=== PATIENT | female | born 1935 | race Caucasian/White ===

== ENCOUNTER 2018-07-19 09:48 | Observation (INO) ==
[2018-07-19] MEDS ORDERED: Isovue-370 500 ML BOTTLE IVP ONE ×2 (09:54→12:02)
[2018-07-19] MEDS ORDERED: Ibuprofen 600 MG TABLET PO ONE (09:54)
[2018-07-19] MEDS ORDERED: Azithromycin 500 MG in D5% in Water 250 ML IVPB ONE (09:55)
[2018-07-19] MEDS ORDERED: ISOVUE-370 100 ML INFUS..BTL IVP ONE (10:01)
--- NOTE | 2018-07-19 10:02 | Emergency Department Note ---
Disposition Clinical Impression: Influenza A, S/P lumbar laminectomy COPD (chronic obstructive pulmonary disease) Qualifiers: COPD type: unspecified COPD Qualified Code(s): J44.9 - Chronic obstructive pulmonary disease, unspecified Disposition: Admitted As Inpatient Condition: Fair Time of Disposition: 08:13 URI/Sore Throat HPI - General Chief Complaint: ED Upper Respiratory Infection Stated Complaint: fever, cough, confusion Time Seen by Provider: 07/19/18 09:51 Source: patient - History of Present Illness HPI Narrative: 82-year-old female who arrives slightly confused according to her she has been in rehabilitation and [facility] after having recent surgery she has been home for about a week she's having fever chills cough congestion she's had no apnea and no cyanosis symptoms just began here in the past 24 hours they've exposure to sick individuals but no known flu positive. stated that she was a little bit confused this morning and is resulted brought to the emergency room he denies of that she was complaining of a chest pain or chest pressure any vomiting or diarrhea he said that she was shaking like she was cold she's been brought in by both her and son they deny though any additional complaints with complete entire review of systems other than some back pain which she has had since her recent surgery but nothing new they do note though that her legs a little bit swollen but don't feel that they are anymore than usual all systems reviewed are otherwise negative Pt Subjective Complaint: fever, cough, flu symptoms, nasal congestion Onset (ago): hour(s) Duration: constant Improves with: nothing Worsens with: nothing If sputum, description: watery Context: sick contacts Associated symptoms: Reports: fever, chills, myalgias, nasal congestion, cough, shortness of breath, other (confusion). Denies: voice changes, diaphoresis, headache, rhinorrhea, sore throat, stiff neck, chest pain, abdominal pain, nausea, vomiting, diarrhea, dysuria, rash, ear pain Treatments prior to arrival: none - Related Data Home Medications Medication Instructions Recorded Confirmed Calcium Carbonate/Vitamin D3 1 tab PO DAILY 01/29/15 07/09/18 [Calcium 600 + D Tablet] Metoprolol [Lopressor] 25 mg PO BID 01/29/15 07/19/18 RX: Aspirin 325 mg PO QPM 01/29/15 07/19/18 RX: Lisinopril [Zestril] 20 mg PO DAILY 01/29/15 07/19/18 Simvastatin [Zocor] 20 mg PO HS 01/29/15 07/19/18 Cyanocobalamin (B-12) [Vitamin B12] 1,000 mcg IM QMONTH 01/09/17 07/09/18 Albuterol Neb [Proventil Neb] 2.5 mg IH DAILY PRN 07/22/17 07/09/18 Albuterol Sulfate [Proair 2 puff IH PRN PRN 07/22/17 07/09/18 Respiclick] Fluticasone/Salmeterol [Advair 1 tab IH BID 07/22/17 07/09/18 250-50 Diskus] Pregabalin [Lyrica] 150 mg PO 2100 04/15/18 07/19/18 RX: Letrozole [Femara] 2.5 mg PO QPM 07/09/18 07/09/18 Sennosides [Senokot] 8.6 mg PO DAILY 07/19/18 07/19/18 Previous Rx's Medication Instructions Recorded Benzonatate [Tessalon] 100 mg PO TID #15 capsule 05/21/18 Montelukast [Singulair] 10 mg PO DAILY #30 tablet 05/21/18 Nystatin [Nystatin Suspension] 15 ml PO TID #240 oral.susp 05/21/18 RX: Magic Mouthwash [Magic 10 ml PO QID #240 ml 05/21/18 Mouthwash BLM] RX: Ferrous Sulfate 325 mg PO BIDWM #60 tablet 07/17/18 Sennosides [Senokot] 8.6 mg PO BID #60 tablet 07/17/18 Allergies Allergy/AdvReac Type Severity Reaction Status Date / Time solifenacin [From Vesicare] Allergy See Verified 07/19/18 09:59 Comments Sulfa (Sulfonamide Allergy See Verified 07/19/18 09:59 Antibiotics) Comments trospium Allergy See Verified 07/19/18 09:59 Comments All systems ED: reviewed and negative except as stated. Review of Systems: As Per HPI (Information provided by the confused) Constitutional: Reports: fever, chills, weakness Eyes: Denies: eye pain, eye discharge, vision change ENT ED: Reports: congestion. Denies: ear pain, throat pain Cardiovascular: Denies: chest pain, palpitations Respiratory: Reports: cough, dyspnea, wheezes Gastrointestinal: Denies: abdominal pain, nausea Genitourinary: Denies: urgency, dysuria, frequency Musculoskeletal: Reports: back pain (Due to surgery). Denies: neck pain Integumentary: Denies: rash, abrasion Neurological: Denies: headache, weakness Psychiatric: Denies: anxiety, depression Endocrine: Denies: fatigue, heat or cold intolerance Hematological/Lymphatic: Denies: easy bleeding Allergic/Immunologic: Denies: facial swelling URI PMH - Past Medical History Medical history: Reports: COPD, hyperlipidemia, hypertension Surgical history: Reports: cataract, cholecystectomy, pacemaker/AICD Psychiatric history: Reports: no psych history TRANSONIC ENGINEER history: Reports: no TRANSONIC ENGINEER history - Social History Smoking Status: Never smoker Alcohol use: Reports: none Drug use: Reports: none Physical Exam - General Limitations: altered mental status, age General appearance: alert, in no apparent distress, anxious, other (pleasantly cnfused) - Head Head exam: atraumatic, normocephalic, normal inspection - Eye Eye exam: Present: normal appearance, PERRL, EOMI - ENT ENT exam: normal exam, normal oropharynx, mucous membranes moist, TM's normal bilaterally, normal external ear exam - Neck Neck exam: Present: normal inspection, trachea midline - Chest Chest inspection: Present: normal inspection, symmetric chest wall rise - Respiratory Respiratory exam: Present: wheezes, prolonged expiratory phase - Cardiovascular Cardiovascular exam: Present: regular rate, normal rhythm, normal heart sounds - Abdominal Exam Abdominal exam: Present: soft, Non-Tender, normal bowel sounds. Absent: mass, pulsatile mass - Extremities Exam Extremities exam: Present: normal inspection, full ROM, normal capillary refill, pedal edema (appears slightly greater on the right than the left). Absent: te nderness, joint swelling, calf tenderness - Expanded Lower Extremity Exam Neurovascular/Tendon exam: Present: normal capillary refill, normal fine/light touch Gait: observed and normal - Back Exam Back exam: Present: other (Recent back surgery brace in place) - Neurological Exam Neurological exam: Present: alert, oriented X3, CN II-XII intact, normal gait - Psychiatric Psychiatric exam: Present: normal affect, normal mood - Skin Skin exam: Present: warm, dry, intact, normal color Course Course Narrative: Patient is seen and evaluated workup for PE as well as possibility of influenza or pneumonia is being done as well as urinary tract infection - Reevaluation(s) Reevaluation #1: With completion of the PE study was negative for any pulmonary emboli of the parents of the patient has influenza which is causing her symptomatology at this time as result the patient will be admitted because the altered mental status and the influenza we'll start her on antibiotics transferred to [facility] Patient is actually now back to baseline able to carry on conversation with everybody and just did not recall that the family members have been present when she first arrived she is now answering questions appropriately and carry on conversation with at bedside Vital Signs Temperature 101.3 F H 07/19/18 09:51 Pulse Rate 78 07/19/18 09:51 Respiratory Rate 24 07/19/18 09:51 Blood Pressure 124/48 07/19/18 09:51 O2 Sat by Pulse Oximetry 91 07/19/18 09:51 Temperature 98.0 F 07/20/18 06:56 Pulse Rate 75 07/20/18 06:56 Respiratory Rate 16 07/20/18 06:56 Blood Pressure 116/61 07/20/18 06:56 O2 Sat by Pulse Oximetry 93 07/20/18 06:56 Oxygen Delivery Oxygen Delivery Nasal Cannula Upper Respiratory Infection - Medical Records Medical records reviewed: Yes I reviewed the patient's medical records. - Lab Data Lab results reviewed: Yes I reviewed the patient's lab results. Result diagrams: 07/20/18 05:25 07/20/18 05:25 Lab Results 07/19/18 07/19/18 07/19/18 Range/Units 10:17 10:17 10:17 WBC 7.8 (4.3-11.1) K/mcL RBC 3.16 L (3.82-4.97) M/mcL Hgb 10.0 L (11.5-15.4) g/dL Hct 29.4 L (35.3-44.9) % MCV 93.0 (83.0-100.0) fL MCH 31.6 (28.0-33.3) pg MCHC 34.0 (31.6-35.5) g/dL RDW 13.2 (11.5-14.5) % Plt Count 263 (140-400) K/mcL MPV 9.7 (9.4-12.4) fL Immature Gran % 1.0 (0-4) % Seg Neutrophils % 87.5 % Lymphocytes % 3.7 % Monocytes % 6.6 % Eosinophils % 0.4 % Basophils % 0.8 % Neutrophils # 6.8 (1.6-8.9) K/mcL Lymphocytes # 0.3 L (0.6-4.6) K/mcL Monocytes # 0.5 (0.0-1.3) K/mcL Eosinophils # 0.0 (0.0-0.6) K/mcL Basophils # 0.1 (0.0-0.2) K/mcL PT 13.0 H (9.4-12.1) Seconds INR 1.2 APTT 33.0 (26.0-36.0) Seconds D-Dimer 42371 H (0-500) ng/mLFEU Sodium 133 L (136-145) mEq/L Potassium 4.2 (3.5-5.1) mEq/L Chloride 99 (98-107) mEq/L Carbon Dioxide 27 (23-29) mEq/L BUN 18 (8-23) mg/dL Creatinine 1.18 (0.60-1.20) mg/dL Est GFR ( Amer) 53 L (> 60) Est GFR (Non-Af Amer) 44 L (> 60) BUN/Creatinine Ratio 15 (6-26) Glucose 126 H (70-105) mg/dL Calculated Osmolality 279 L (280-300) Lactic Acid (0.5-2.2) mmol/L Calcium 9.3 (8.6-10.3) mg/dL Total Bilirubin 0.4 (0.3-1.0) mg/dL AST 21 (13-39) Units/L ALT 14 (7-52) Units/L Alkaline Phosphatase 109 H (34-104) Units/L Troponin I < 0.03 (< 0.04) ng/mL Serum Total Protein 6.5 (6.4-8.9) g/dL Albumin 3.3 L (3.5-5.7) g/dL Globulin 3.2 (2.4-3.5) g/dL Albumin/Globulin Ratio 1.0 L (1.1-2.2) 07/19/18 Range/Units 10:17 WBC (4.3-11.1) K/mcL RBC (3.82-4.97) M/mcL Hgb (11.5-15.4) g/dL Hct (35.3-44.9) % MCV (83.0-100.0) fL MCH (28.0-33.3) pg MCHC (31.6-35.5) g/dL RDW (11.5-14.5) % Plt Count (140-400) K/mcL MPV (9.4-12.4) fL Immature Gran % (0-4) % Seg Neutrophils % % Lymphocytes % % Monocytes % % Eosinophils % % Basophils % % Neutrophils # (1.6-8.9) K/mcL Lymphocytes # (0.6-4.6) K/mcL Monocytes # (0.0-1.3) K/mcL Eosinophils # (0.0-0.6) K/mcL Basophils # (0.0-0.2) K/mcL PT (9.4-12.1) Seconds INR APTT (26.0-36.0) Seconds D-Dimer (0-500) ng/mLFEU Sodium (136-145) mEq/L Potassium (3.5-5.1) mEq/L Chloride (98-107) mEq/L Carbon Dioxide (23-29) mEq/L BUN (8-23) mg/dL Creatinine (0.60-1.20) mg/dL Est GFR ( Amer) (> 60) Est GFR (Non-Af Amer) (> 60) BUN/Creatinine Ratio (6-26) Glucose (70-105) mg/dL Calculated Osmolality (280-300) Lactic Acid 0.9 (0.5-2.2) mmol/L Calcium (8.6-10.3) mg/dL Total Bilirubin (0.3-1.0) mg/dL AST (13-39) Units/L ALT (7-52) Units/L Alkaline Phosphatase (34-104) Units/L Troponin I (< 0.04) ng/mL Serum Total Protein (6.4-8.9) g/dL Albumin (3.5-5.7) g/dL Globulin (2.4-3.5) g/dL Albumin/Globulin Ratio (1.1-2.2) - Radiology Data Radiology results reviewed: Yes I reviewed the patient's radiology results. ITS Impressions Chest CTA 07/19/18 09:53 IMPRESSION: No pulmonary embolus. No acute cardiopulmonary disease. Small sliding-type hiatal hernia. D/ / 07/19/2018 11:24:00 Deidre Rehman MD / evelia Interpreting Provider: Deidre Rehman MD Chest X-Ray 07/19/18 09:53 IMPRESSION: No acute process. D/ / Pedro Bryant MD / Pedro Bryant MD Interpreting Provider: Pedro Bryant MD Head CT 07/19/18 09:55 IMPRESSION: No acute intracranial abnormality. D/ / 07/19/2018 11:18:42 Deidre Rehman MD / evelia Interpreting Provider: Deidre Rehman MD - EKG Data EKG attestation: Yes I reviewed and interpreted this EKG. EKG results narrative: EKG paced rhythm erratic baseline because of the patient's shaking at this time because of the fever heart rate 78 OH 65 QRS 95 QT 366 access 7 Critical Care Time Critical Care Time: Yes Total Critical Care Time: 20 Attestation: 20 minutes high probability clinically significant life-threatening deterioration patient condition excluding separately reportable procedures
[2018-07-19 10:24] LABS: Basophils # 0.1 K/mcL (0.0-0.2); Basophils % 0.8 %; Eosinophils % 0.4 %; Hematocrit 29.4 % (35.3-44.9); Lymphocytes # 0.3 K/mcL (0.6-4.6); Lymphocytes % 3.7 %; Mean Corpuscular Hemoglobin 31.6 pg (28.0-33.3); Mean Platelet Volume 9.7 fL (9.4-12.4); Monocytes # 0.5 K/mcL (0.0-1.3); Monocytes % 6.6 %; Neutrophils # 6.8 K/mcL (1.6-8.9); Platelet Count 263 K/mcL (140-400); Red Blood Count 3.16 M/mcL (3.82-4.97); Red Cell Distribution Width 13.2 % (11.5-14.5); Segmented Neutrophils % 87.5 %
[2018-07-19 10:31] LABS: INR 1.2
[2018-07-19 10:42] LABS: Alanine Aminotransferase 14 Units/L (7-52); Albumin 3.3 g/dL (3.5-5.7); Alkaline Phosphatase 109 Units/L (34-104); Aspartate Amino Transferase 21 Units/L (13-39); BUN/Creatinine Ratio 15 (6-26); Bilirubin,Total 0.4 mg/dL (0.3-1.0); Blood Urea Nitrogen 18 mg/dL (8-23); Calcium 9.3 mg/dL (8.6-10.3); Carbon Dioxide 27 mEq/L (23-29); Chloride 99 mEq/L (98-107); Globulin 3.2 g/dL (2.4-3.5); Glucose 126 mg/dL (70-105); Osmolality,Calculated 279 (280-300); Potassium 4.2 mEq/L (3.5-5.1); Sodium 133 mEq/L (136-145); Total Protein 6.5 g/dL (6.4-8.9); Troponin I < 0.03 ng/mL (< 0.04); eGFR For Non-African Americans 44 (> 60)
[2018-07-19] MEDS ORDERED: NON-FORMULARY MEDICATION 1 EACH EACH (Albuterol Sulfate [Proair Respiclick] 2 PUFF) IH PRN (12:02)
[2018-07-19] MEDS ORDERED: Acetaminophen 325 MG TABLET PO PRN (12:02)
[2018-07-19] MEDS ORDERED: 0.9 % Sodium Chloride 1,000 ML IVC SCH (12:02)
[2018-07-19] MEDS ORDERED: Albuterol 2.5 MG/3 ML NEBULIZER IH PRN (12:02)
[2018-07-19] MEDS ORDERED: Naloxone 0.4 MG/ML INJ IVP PRN (12:02)
[2018-07-19] MEDS ORDERED: Magic Mouthwash 10 ML UD Cup PO SCH ×2 (13:00)
[2018-07-19 17:28] LABS: Bilirubin,Urine Negative (Negative); Blood,Urine Negative (Negative); Clarity,Urine Slightly Cloudy (Clear); Color,Urine Yellow (Yellow); Glucose,Urine (UA) Normal (Normal); Ketones,Urine Negative (Negative); Leukocyte Esterase,Urine Small (Negative); Nitrite,Urine Negative (Negative); PH,Urine >=9.0 pH Units (5.0-8.0); Protein,Urine Trace mg/dL (Neg-Trace); Urobilinogen,Urine Normal (Normal)
[2018-07-19 17:48] LABS: Triple Phosphate Crystal,Urine Present
[2018-07-19 17:50] LABS: Bacteria,Urine Moderate per hpf (None-Few); RBC,Urine 0-3 per hpf (0-3); Squamous Epithelial Cell,Urine Few per lpf (None-Few)
[2018-07-19] MEDS ORDERED: Letrozole 2.5 MG TABLET PO SCH (18:00)
[2018-07-19] MEDS ORDERED: Aspirin 325 MG TABLET PO SCH (18:00)
[2018-07-19] MEDS: Stomatitis Mixture 5 ML UDC PO SCH ×3 (18:23→20:48)
--- NOTE | 2018-07-19 18:39 | Internal Med History&Physical ---
Date of Encounter: 07/19/18 Time of Encounter: 18:00 Assessment and Plan (1) Influenza A Current visit: Yes Status: Acute She was given Tamiflu with Rocephin and Zithromax in emergency room. She will continue Tamiflu. No infiltrate was seen on chest CT in emergency room. (2) CKD (chronic kidney disease) stage 3, GFR 30-59 ml/min Current visit: Yes Status: Chronic Monitor renal indices. (3) Hypertension Current visit: No Status: Chronic Continue lisinopril and Lopressor. Qualifiers: Hypertension type: essential hypertension Qualified Code(s): I10 - Es sential (primary) hypertension (4) Anemia Current visit: No Status: Acute Anemia testing 07/11/2018 showed iron 12, transferrin saturation 4%, transferrin 198, ferritin 52, and B12 426. She reports she was given 2 units packed red blood cells and an iron infusion last week during rehabilitation stay at [facility]. Hemoglobin has improved to 10.0. Qualifiers: Anemia type: iron deficiency Iron deficiency anemia type: unspecified iron deficiency Qualified Code(s): D50.9 - Iron deficiency anemia, unspecified Internal Medicine - H&P: HPI Chief complaint: Cough Admitted From: Emergency Dept Plans for Post Hospital Care: Home History of present illness: Ms. Hogan is a 82 year old female who came to emergency room stating she had increased coughing over the past 24-48 hrs. She reports cough was productive of clear sputum. She felt weak and had sensation of fevers and chills. She was evaluated in emergency room and was found to have influenza A. She had anemia and left shift on WBC differential. She was admitted to [facility] floor for ongoing care needs. Respiratory history is significant for being a lifelong nonsmoker. She had pulmonary function testing 02/09/2016 which showed FVC 81% predicted, FEV1 74% predicted, FEV1/FVC 69%, MVV 77% predicted, RV 132% predicted, and DLCO 80% predicted. There was no significant improvement in FEV1 or FVC postbronchodilator. She was diagnosed with COPD. She does not use home oxygen. Past Med Surg Social Fam HX - Past Medical History Medical history: cancer, COPD, hyperlipidemia, hypertension Additional medical history: breast cancer Psychiatric history: no psych history - Past Surgical History Surgical History: cataract, cholecystectomy, pacemaker/AICD Additional surgical history: supris midurethal sling/cystoscopy,LHC,dual chamber permanent pacemaker,colonoscopy,US guided lt breast bx. back surgery - Social History Smoking Status: Never smoker Smokeless Tobacco Status: No Alcohol use: none Drug use: none - Family History Mother History Unknown: Yes Internal Medicine - H&P: Meds Aspirin 325 mg PO QPM 01/29/15 [History] Calcium Carbonate/Vitamin D3 [Calcium 600 + D Tablet] 1 tab PO DAILY 01/29/15 [History] Lisinopril [Zestril] 20 mg PO DAILY 01/29/15 [History] Metoprolol [Lopressor] 25 mg PO BID 01/29/15 [History] Simvastatin [Zocor] 20 mg PO HS 01/29/15 [History] Cyanocobalamin (B-12) [Vitamin B12] 1,000 mcg IM QMONTH 01/09/17 [History] Albuterol Neb [Proventil Neb] 2.5 mg IH DAILY PRN 07/22/17 [History] Albuterol Sulfate [Proair Respiclick] 2 puff IH PRN PRN 07/22/17 [History] Fluticasone/Salmeterol [Advair 250-50 Diskus] 1 tab IH BID 07/22/17 [History] Pregabalin [Lyrica] 150 mg PO 2100 04/15/18 [History] Benzonatate [Tessalon] 100 mg PO TID #15 capsule 05/21/18 [Rx] Magic Mouthwash [Magic Mouthwash BLM] 10 ml PO QID #240 ml 05/21/18 [Rx] Montelukast [Singulair] 10 mg PO DAILY #30 tablet 05/21/18 [Rx] Nystatin [Nystatin Suspension] 15 ml PO TID #240 oral.susp 05/21/18 [Rx] Letrozole [Femara] 2.5 mg PO QPM 07/09/18 [History] Ferrous Sulfate 325 mg PO BIDWM #60 tablet 07/17/18 [Rx] Sennosides [Senokot] 8.6 mg PO BID #60 tablet 07/17/18 [Rx] Sennosides [Senokot] 8.6 mg PO DAILY 07/19/18 [History] Allergy/AdvReac Type Severity Reaction Status Date / Time solifenacin [From Vesicare] Allergy See Verified 07/19/18 09:59 Comments Sulfa (Sulfonamide Allergy See Verified 07/19/18 09:59 Antibiotics) Comments trospium Allergy See Verified 07/19/18 09:59 Comments All Systems PM: A 10-system review of systems was performed and is negative for pertinent findings except as documented above in the HPI. Review of systems: Gen.: She states her weight has been stable for several months Cardiovascular: She has hypertension but denies VT heart failure angina DVT or pulmonary embolus. 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 Respiratory: As per history of present illness GI: She reports pancreatitis approximately 20 years ago due to gallstones. She had cholecystectomy and has had no recurrence. She denies other liver or exocrine pancreas disorders. : She has chronic kidney disease stage III but does not follow with a industrial maintenance mechanic. She has occasional urinary incontinence. Neurologic: She denies large distribution strokes or seizures. 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 She declined XRT and is on letrozole. She had anemia and received 2 units packed red blood cells during a recent [facility] stay. She denies other internal malignancies or blood disorders. Psychiatric: She denies anxiety depression or other mental health issues [place] skeletal: She had recent back surgery at [facility] 2 weeks ago but is uncertain of the exact procedure. She states "rods were inserted". She has DJD but denies gout or other bone joint or muscle disorders. - Constitutional Vitals: Temp Pulse Resp BP Pulse Ox 97.2 F L 75 16 101/53 95 07/19/18 16:27 07/19/18 16:27 07/19/18 16:27 07/19/18 16:27 07/19/18 16:27 Exam: Gen.: She is a well-developed well-nourished female resting comfortably in bed who appears in no severe distress at present time HEENT: Head is atraumatic and normocephalic. Eyes: EOMI. There is no scleral icterus. Mouth: Mucosa is moist. Neck: Supple and nontender. There is no thyromegaly or adenopathy noted. Heart: Regular without murmurs gallops or ectopics Lungs: No wheezes or crackles are heard. Abdomen: Soft and nontender. No masses or guarding are noted. Extremities: There is no cyanosis edema or clubbing noted. Dorsalis pedis and posttibial pulses are trace to 1+ palpable bilaterally. Neurologic: Mental status: She is talkative and a good historian. Cranial nerves: Smile is symmetric. Forehead reveals bilaterally. Tongue protrudes midline. EOMI. Motor: There is no pronator drift. Cerebellar: Finger to nose is intact bilaterally. Skin: Warm and dry Internal Med - H&P Results - Labs CBC & Chem 7: 07/19/18 10:17 07/19/18 10:17 Labs: Short CBC 07/19/18 Range/Units 10:17 WBC 7.8 (4.3-11.1) K/mcL Hgb 10.0 L (11.5-15.4) g/dL Hct 29.4 L (35.3-44.9) % Plt Count 263 (140-400) K/mcL Neutrophils # 6.8 (1.6-8.9) K/mcL BMP 07/19/18 10:17 Sodium 133 L Potassium 4.2 Chloride 99 Carbon Dioxide 27 BUN 18 Creatinine 1.18 Glucose 126 H Calcium 9.3 Cardiac Enzymes 07/19/18 Range/Units 10:17 Troponin I < 0.03 (< 0.04) ng/mL Liver Function 07/19/18 Range/Units 10:17 Total Bilirubin 0.4 (0.3-1.0) mg/dL AST 21 (13-39) Units/L ALT 14 (7-52) Units/L Alkaline Phosphatase 109 H (34-104) Units/L Albumin 3.3 L (3.5-5.7) g/dL Urine 07/19/18 Range/Units 17:20 Urine Color Yellow (Yellow) Urine Clarity Slightly Cloudy A (Clear) Urine pH >=9.0 H (5.0-8.0) pH Units Ur Specific [place] 1.010 (1.010-1.025) Urine Protein Trace (Neg-Trace) mg/dL Urine Glucose (UA) Normal (Normal) mg/dL - Impressions ITS Impressions Chest CTA 07/19/18 09:53 IMPRESSION: No pulmonary embolus. No acute cardiopulmonary disease. Small sliding-type hiatal hernia. D/ / 07/19/2018 11:24:00 Deidre Rehman MD / evelia Interpreting Provider: Deidre Rehman MD Chest X-Ray 07/19/18 09:53 IMPRESSION: No acute process. D/ / Pedro Bryant MD / Pedro Bryant MD Interpreting Provider: Pedro Bryant MD Head CT 07/19/18 09:55 IMPRESSION: No acute intracranial abnormality. D/ / 07/19/2018 11:18:42 Deidre Rehman MD / evelia Interpreting Provider: Deidre Rehman MD
[2018-07-19] MEDS: Nystatin SUSP 5 ML UD.LIQ PO SCH ×2 (18:41→20:48)
[2018-07-19] MEDS: Benzonatate 100 MG CAPSULE PO SCH ×2 (18:41→20:49)
[2018-07-19] MEDS: 0.9 % Sodium Chloride 1,000 ML IVC SCH (19:10)
[2018-07-19] MEDS: Sennosides 8.6 MG TABLET PO SCH (20:39)
[2018-07-19] MEDS ORDERED: Pregabalin 75 MG CAPSULE PO SCH (21:00)
[2018-07-19] MEDS: Budesonide/Formoterol 80/4.5 MDI IH SCH (21:25)
[2018-07-20 06:18] LABS: Basophils % 0.8 %; Eosinophils % 0.5 %; Hematocrit 26.8 % (35.3-44.9); Hemoglobin 8.7 g/dL (11.5-15.4); Immature Granulocytes % 1.3 % (0-4); Lymphocytes # 0.4 K/mcL (0.6-4.6); Lymphocytes % 9.8 %; Mean Corpuscular HGB Conc 32.5 g/dL (31.6-35.5); Mean Corpuscular Hemoglobin 30.5 pg (28.0-33.3); Mean Platelet Volume 9.9 fL (9.4-12.4); Monocytes # 0.7 K/mcL (0.0-1.3); Monocytes % 17.1 %; Platelet Count 234 K/mcL (140-400); Red Blood Count 2.85 M/mcL (3.82-4.97); Red Cell Distribution Width 13.3 % (11.5-14.5); Segmented Neutrophils % 70.5 %
[2018-07-20 06:20] LABS: Neutrophils # 2.8 K/mcL (1.6-8.9)
[2018-07-20 06:39] LABS: Calcium 8.6 mg/dL (8.6-10.3); Potassium 3.9 mEq/L (3.5-5.1)
[2018-07-20 07:02] VITALS: BP 116/61
[2018-07-20] MEDS: Budesonide/Formoterol 80/4.5 MDI IH SCH (08:26)
[2018-07-20] MEDS ORDERED: cefTRIAXone 1,000 MG in Water for inj. (sterile) 20 ML 10 ML IVP SCH (09:00)
[2018-07-20] MEDS ORDERED: Cholecalciferol (D-3) 1,000 UNIT TABLET PO SCH (09:00)
[2018-07-20] MEDS ORDERED: Lisinopril 20 MG TABLET PO SCH (09:00)
[2018-07-20] MEDS: 0.9 % Sodium Chloride 1,000 ML IVC SCH (09:24)
[2018-07-20] MEDS: Benzonatate 100 MG CAPSULE PO SCH (09:25)
[2018-07-20] MEDS: Sennosides 8.6 MG TABLET PO SCH (09:26)
[2018-07-20] MEDS: Nystatin SUSP 5 ML UD.LIQ PO SCH (09:28)
[2018-07-20] MEDS: Stomatitis Mixture 5 ML UDC PO SCH (09:44)
--- NOTE | 2018-07-20 10:09 | Discharge Summary ---
Orders not resulted at time of discharge: Pending orders 07/19/18 09:52 ECG 12 lead ECG [ECG] Stat 07/19/18 10:20 Culture,Blood [BC] Stat 07/19/18 17:20 Culture,Urine [RM] Stat Date of Encounter: 07/20/18 Time of Encounter: 10:00 - Discharge Diagnosis (1) Influenza A Priority: Primary Status: Acute (2) CKD (chronic kidney disease) stage 3, GFR 30-59 ml/min Priority: Secondary Status: Chronic (3) Hypertension Priority: Secondary Status: Chronic Qualifiers: Hypertension type: essential hypertension Qualified Code(s): I10 - Essential (primary) hypertension (4) Anemia Priority: Secondary Status: Acute Qualifiers: Anemia type: iron deficiency Iron deficiency anemia type: unspecified iron deficiency Qualified Code(s): D50.9 - Iron deficiency anemia, unspecified Hospital course: Ms. Hogan is a 82 year old female who came to emergency room stating she had increased coughing over the past 24-48 hrs. She reports cough was productive of clear sputum. She felt weak and had sensation of fevers and chills. She was evaluated in emergency room and was found to have influenza A. She had anemia and left shift on WBC differential. She was admitted to [facility] floor for ongoing care needs. Initial orders were written by the emergency room physician. I saw her on July 19 and performed a history and physical. She was given Rocephin and Zithromax in emergency room and started on Tamiflu. Chest CTA did not show infiltrate so antibiotics will not be continued. She will continue Tamiflu to complete a 5 day course. Follow-up lab work on July 20 showed WBC minimally low at 3.9 with resolution of left shift on differential. She felt clinically improved and stable for discharge home. She will follow with her PCP Dr. Herzog within 1 week. Room air oximetry will be checked on 6 minute walk prior to discharge. - Time Spent with Patient Total time spent providing and/or coordinating discharge services: - Discharge Medications Prescriptions: Oseltamivir [Tamiflu] 75 mg PO BID #8 capsule Home Medications: Aspirin 325 mg PO QPM 01/29/15 [History] Calcium Carbonate/Vitamin D3 [Calcium 600 + D Tablet] 1 tab PO DAILY 01/29/15 [History] Lisinopril [Zestril] 20 mg PO DAILY 01/29/15 [History] Metoprolol [Lopressor] 25 mg PO BID 01/29/15 [History] Simvastatin [Zocor] 20 mg PO HS 01/29/15 [History] Cyanocobalamin (B-12) [Vitamin B12] 1,000 mcg IM QMONTH 01/09/17 [History] Albuterol Neb [Proventil Neb] 2.5 mg IH DAILY PRN 07/22/17 [History] Albuterol Sulfate [Proair Respiclick] 2 puff IH PRN PRN 07/22/17 [History] Fluticasone/Salmeterol [Advair 250-50 Diskus] 1 tab IH BID 07/22/17 [History] Pregabalin [Lyrica] 150 mg PO 2100 04/15/18 [History] Benzonatate [Tessalon] 100 mg PO TID #15 capsule 05/21/18 [Rx] Magic Mouthwash [Magic Mouthwash BLM] 10 ml PO QID #240 ml 05/21/18 [Rx] Montelukast [Singulair] 10 mg PO DAILY #30 tablet 05/21/18 [Rx] Nystatin [Nystatin Suspension] 15 ml PO TID #240 oral.susp 05/21/18 [Rx] Letrozole [Femara] 2.5 mg PO QPM 07/09/18 [History] Ferrous Sulfate 325 mg PO BIDWM #60 tablet 07/17/18 [Rx] Sennosides [Senokot] 8.6 mg PO BID #60 tablet 07/17/18 [Rx] Sennosides [Senokot] 8.6 mg PO DAILY 07/19/18 [History] Oseltamivir [Tamiflu] 75 mg PO BID #8 capsule 07/20/18 [Rx] Allergies/Adverse Reactions: Allergy/AdvReac Type Severity Reaction Status Date / Time solifenacin [From Vesicare] Allergy See Verified 07/19/18 09:59 Comments Sulfa (Sulfonamide Allergy See Verified 07/19/18 09:59 Antibiotics) Comments trospium Allergy See Verified 07/19/18 09:59 Comments Date of admission: 07/19/18 12:00 Primary care physician: Basil Herzog Consults: 07/19/18 12:02 Consult to Nurse Navigator [CONS] Routine Comment: Consult to Occupational Therapy [CONS] Routine Comment: Evaluate, develop and implement POC Reason for Consult: recent back surgery has been recieving in [facility] Does patient have active BEDREST order?: No Is patient medically & hemodynamically stable?: Yes Patient assessed for mobility or mobilized this visit?: Yes Consult to Physical Therapy [CONS] Routine Comment: Evaluate, develop and implement POC Reason for Consult: recent back surgery treatments at [facility] Does patient have active BEDREST order?: No Is patient medically & hemodynamically stable?: Yes Patient assessed for mobility or mobilized this visit?: Yes - Constitutional Vitals: Temp Pulse Resp BP Pulse Ox 98.0 F 75 16 116/61 92 07/20/18 06:56 07/20/18 06:56 07/20/18 08:14 07/20/18 06:56 07/20/18 08:14 - Patient Status Disposition: Home, Self-Care Condition: Fair - Discharge Instructions Follow Up With: Basil Herzog DO [Primary Care Provider] - 1 week - Diet and Activity Activity: resume usual activities as tolerated Diet: advance to your usual diet
[2018-07-20] MEDS ORDERED: Azithromycin 500 MG in D5% in Water 250 ML IVPB SCH (12:00)
--- NOTE | 2018-07-22 14:33 | Electrocardiograph Report ---
[place] [id number] Test Date: 2018-07-19 Pat Name: Pascual Hogan Department: EDP-11 Room: [facility] Gender: F Choral Director: : [id number] Requested By: Concepcion French Order Number: [id number] Reading MD: Martha Estrada Measurements Intervals [place] Rate: 78 P: CA: 65 QRS: 7 QRSD: 95 T: 120 QT: 366 QTc: 417 Interpretive Statements Atrial-paced rhythm Nonspecific ST-T abnormalities Electronically Signed On 07-22-2018 14:32:17 EST by Martha Estrada
[2018-08-13] MEDS ORDERED: Cyanocobalamin (B-12) 1,000 MCG/ML VIAL IM SCH (09:00)
== END 2018-07-20 11:11 | disposition home or self-care (01) ==
LOC: INPPIK 09:48 → EMEROOPIK 09:48 → INPPIK 12:43
PROVIDERS: ADMIT Internal Medicine; ATTEND Internal Medicine